=== PATIENT | female | born 1960 | race Caucasian/White ===

== ENCOUNTER 2017-07-17 16:26 | Inpatient (IN) | payer MEDICAID ==
[~2017-07-17] VITALS: Ht 147.3 cm; Wt 62.7 kg
[2017-07-17 17:13] LABS: microscopic required? NO
[2017-07-17 17:25] LABS: UA SPECIFIC GRAVITY <=1.005 (1.005-1.035); urine erythrocyte NEGATIVE (NEGATIVE)
[2017-07-17 17:27] LABS: CARBON DIOXIDE 26.2 mmol/L (21-32); CHLORIDE SERUM 99 mmol/L (98-107); CREATININE SERUM 0.8 mg/dL (0.6-1.0); GFR1 > 60 mL/min; GLUCOSE SERUM 369 mg/dL (74-106); POTASSIUM SERUM 3.6 mmol/L (3.5-5.1); SODIUM SERUM 132 mmol/L (136-145)
[2017-07-17 17:32] LABS: ALBUMIN 3.8 g/dL (3.4-5.0); ALKALINE PHOSPHATASE 124 U/L (46-116); ALT/SGPT 22 U/L (14-59); AST/SGOT 12 U/L (15-37); LIPASE 135 IU/L (73-393); TOTAL PROTEIN, SERUM 7.3 g/dL (6.4-8.2)
[2017-07-17 17:34] LABS: AMYLASE 20 U/L (25-115)
[2017-07-17 17:36] LABS: BASOPHIL % 0.1 % (0-2); PLATELET COUNT 208 x10^3mcL (130-400); RED CELL DISTRIBUTION WIDTH 12.1 % (11.5-14.5)
[2017-07-18] VITALS (7 sets, daily range): BP systolic 81–92; BP diastolic 49–58
[2017-07-18] MEDS ORDERED: BENAZEPRIL PO (01:57)
[2017-07-18] MEDS ORDERED: GOOD SENSE OMEP20 MG PO (01:57)
[2017-07-18] MEDS ORDERED: LANTUS SOLOS100 U/M1 SQ (01:57)
[2017-07-18 03:35] LABS: BASOPHIL % 0.2 % (0-2); PLATELET COUNT 183 x10^3mcL (130-400); RED CELL DISTRIBUTION WIDTH 12.8 % (11.5-14.5)
[2017-07-18 03:59] LABS: PHOSPHOROUS 3.9 mg/dL (2.5-4.9)
[2017-07-18 04:05] LABS: CALCIUM 8.5 mg/dL (8.5-10.1); CARBON DIOXIDE 28.1 mmol/L (21-32); CHLORIDE SERUM 105 mmol/L (98-107); CREATININE SERUM 0.7 mg/dL (0.6-1.0); GFR1 > 60 mL/min; GLUCOSE SERUM 227 mg/dL (74-106); MAGNESIUM 1.9 mg/dL (1.8-2.4); PHOSPHOROUS 3.2 mg/dL (2.5-4.9); POTASSIUM SERUM 3.3 mmol/L (3.5-5.1); SODIUM SERUM 140 mmol/L (136-145)
[2017-07-18 04:06] LABS: FREE T4 1.12 ng/dL (0.76-1.46); FREE THYROXINE INDEX 2.5 ug/dL (1.4-4.5); T4(THYROXINE) 6.6 ug/dL (4.7-13.3)
[2017-07-18 04:07] LABS: CHOLESTEROL/HDL RATIO 4.4; T3 TOTAL 0.85 ng/mL
[2017-07-18 04:22] LABS: AMPHETAMINE QUAL UR NONE DETECTED (NEG <=1000)
[2017-07-19 05:17] VITALS: BP 89/54
[2017-07-19 06:59] LABS: BASOPHIL % 0.4 % (0-2); PLATELET COUNT 178 x10^3mcL (130-400); RED CELL DISTRIBUTION WIDTH 12.9 % (11.5-14.5)
[2017-07-19 07:13] LABS: CALCIUM 8.4 mg/dL (8.5-10.1); CARBON DIOXIDE 26.4 mmol/L (21-32); CHLORIDE SERUM 111 mmol/L (98-107); CREATININE SERUM 0.6 mg/dL (0.6-1.0); GFR1 > 60 mL/min; GLUCOSE SERUM 141 mg/dL (74-106); POTASSIUM SERUM 3.9 mmol/L (3.5-5.1); SODIUM SERUM 141 mmol/L (136-145)
[2017-07-19 09:32] VITALS: BP 92/63
[2017-07-19 13:38] VITALS: BP 90/53
[2017-07-19 17:15] VITALS: BP 90/49
[2017-07-19 21:59] VITALS: BP 96/53
[2017-07-20 05:24] VITALS: BP 102/65
[2017-07-20 06:01] LABS: BASOPHIL % 0.5 % (0-2); PLATELET COUNT 182 x10^3mcL (130-400); RED CELL DISTRIBUTION WIDTH 13.3 % (11.5-14.5)
[2017-07-20 06:18] LABS: CALCIUM 8.1 mg/dL (8.5-10.1); CARBON DIOXIDE 27.4 mmol/L (21-32); CHLORIDE SERUM 111 mmol/L (98-107); CREATININE SERUM 0.7 mg/dL (0.6-1.0); GFR1 > 60 mL/min; GLUCOSE SERUM 157 mg/dL (74-106); POTASSIUM SERUM 3.7 mmol/L (3.5-5.1); SODIUM SERUM 146 mmol/L (136-145)
[2017-07-20 08:00] VITALS: BP 127/64
[2017-07-20] MEDS ORDERED: COL100 PO (11:07)
[2017-07-20] MEDS ORDERED: APAP/HYDROCODON1 T13 PO (11:07)
[2017-07-20 11:25] VITALS: BP 97/58
[2017-07-20] MEDS ORDERED: LOT5 PO (12:40)
[2017-07-20] MEDS ORDERED: ATORVASTATIN CA40 M1 PO (12:40)
[2017-07-20 13:06] VITALS: BP 97/58
[2017-07-20 13:08] VITALS: BP 97/58
== END 2017-07-20 14:48 | disposition home or self-care (01) | DRG 225 ==
LOC: ED 16:26 → MU 07-18 02:42 → DU 07-18 02:42 → MU 07-18 02:42 → DU 07-18 03:30 → MU 07-19 09:54
PROVIDERS: Emergency Medicine; Family Medicine; Surgery; ADMIT Family Medicine
PROC: 0DTJ4ZZ Resection of Appendix, Percutaneous Endoscopic Approach (ICD-10-PCS; principal; 2017-07-18 09:00)
DX: K35.80 Unspecified acute appendicitis (principal); N17.0 Acute kidney failure with tubular necrosis; D68.69 Other thrombophilia; E11.65 Type 2 diabetes mellitus with hyperglycemia; E87.1 Hypo-osmolality and hyponatremia; E87.8 Other disorders of electrolyte and fluid balance, not elsewhere classified; I10 Essential (primary) hypertension; G89.29 Other chronic pain; M54.9 Dorsalgia, unspecified; D64.9 Anemia, unspecified; E87.6 Hypokalemia; E83.51 Hypocalcemia; E78.5 Hyperlipidemia, unspecified; E66.9 Obesity, unspecified; Z79.4 Long term (current) use of insulin; Z68.28 Body mass index [BMI] 28.0-28.9, adult
CPT/HCPCS: 82962; 83880; 84439; C9113; J0295; J0330; J0690; J1815; J2250; J2270; J2405; J2543; J2704; J2710; J2765; J3010; J3480; J3490; J7030; Q0092; Q9966; Q9967

== ENCOUNTER 2017-08-25 11:28 | Emergency (ER) | payer MEDICAID ==
[~2017-08-25] VITALS: Ht 160 cm; Wt 62.2 kg
[~2017-08-25 11:28] MED LIST: APAP/HYDROCODON1 T13 PO; ATORVASTATIN CA40 M1 PO; BENAZEPRIL PO; COL100 PO; GOOD SENSE OMEP20 MG PO; LANTUS SOLOS100 U/M1 SQ; LOT5 PO
[2017-08-25 15:01] LABS: microscopic required? NO
[2017-08-25 15:16] LABS: UA SPECIFIC GRAVITY <=1.005 (1.005-1.035); urine erythrocyte NEGATIVE (NEGATIVE)
[2017-08-25 15:19] LABS: BASOPHIL % 0.6 % (0-2); PLATELET COUNT 199 x10^3mcL (130-400); RED CELL DISTRIBUTION WIDTH 12.6 % (11.5-14.5)
[2017-08-25 15:44] LABS: CALCIUM 9.4 mg/dL (8.5-10.1); CARBON DIOXIDE 31.1 mmol/L (21-32); CHLORIDE SERUM 104 mmol/L (98-107); CREATININE SERUM 0.7 mg/dL (0.6-1.0); GFR1 > 60 mL/min; GLUCOSE SERUM 209 mg/dL (74-106); POTASSIUM SERUM 3.8 mmol/L (3.5-5.1); SODIUM SERUM 141 mmol/L (136-145)
[2017-08-25 15:49] LABS: ALKALINE PHOSPHATASE 110 U/L (46-116); ALT/SGPT 20 U/L (14-59); AST/SGOT 14 U/L (15-37); BILIRUBIN TOTAL 0.37 mg/dL (0.20-1.00); LIPASE 212 IU/L (73-393); TOTAL PROTEIN, SERUM 7.5 g/dL (6.4-8.2)
[2017-08-25 15:58] VITALS: BP 104/74
== END 2017-08-25 16:30 | disposition home or self-care (01) ==
LOC: ED 11:28
PROVIDERS: Emergency Medicine
DX: K29.70 Gastritis, unspecified, without bleeding (principal); I10 Essential (primary) hypertension; E11.9 Type 2 diabetes mellitus without complications; G89.29 Other chronic pain; Z90.710 Acquired absence of both cervix and uterus; Z90.49 Acquired absence of other specified parts of digestive tract
CPT/HCPCS: J1885; Q0162

== ENCOUNTER 2018-01-01 11:22 | Emergency (ER) | payer MEDICAID ==
[~2018-01-01] VITALS: Ht 157.5 cm; Wt 62.1 kg
[2018-01-01 11:28] VITALS: Ht 157.5 cm; Wt 62.1 kg
[2018-01-01 14:03] VITALS: BP 99/66
== END 2018-01-01 14:03 | disposition home or self-care (01) ==
LOC: ED 11:22
DX: L25.9 Unspecified contact dermatitis, unspecified cause (principal); R10.2 Pelvic and perineal pain; N95.2 Postmenopausal atrophic vaginitis; I10 Essential (primary) hypertension; E11.9 Type 2 diabetes mellitus without complications
CPT/HCPCS: 87491; 87591

== ENCOUNTER 2018-02-02 22:26 | Emergency (ER) | payer MEDICAID ==
[~2018-02-02] VITALS: Ht 152.4 cm; Wt 72.6 kg
[2018-02-02 22:35] VITALS: Ht 152.4 cm; Wt 72.6 kg
[2018-02-03 01:05] VITALS: BP 123/88
== END 2018-02-03 01:05 | disposition home or self-care (01) ==
LOC: ED 22:26
DX: S16.1XXA Strain of muscle, fascia and tendon at neck level, initial encounter (principal); R07.89 Other chest pain; M79.1 Myalgia; I10 Essential (primary) hypertension; E11.9 Type 2 diabetes mellitus without complications; V23.5XXA Motorcycle passenger injured in collision with car, pick-up truck or van in traffic accident, initial encounter; Y93.89 Activity, other specified; Y99.8 Other external cause status; Y92.89 Other specified places as the place of occurrence of the external cause
CPT/HCPCS: J1885

== ENCOUNTER 2018-02-11 12:33 | Emergency (ER) | payer MEDICAID ==
[~2018-02-11] VITALS: Ht 154.9 cm; Wt 60.8 kg
[2018-02-11 12:41] VITALS: Ht 154.9 cm; Wt 60.8 kg
[2018-02-11 14:27] LABS: CARBON DIOXIDE 25.1 mmol/L (21-32); CHLORIDE SERUM 97 mmol/L (98-107); CREATININE SERUM 0.8 mg/dL (0.6-1.0); GFR1 > 60 mL/min; GLUCOSE SERUM 415 mg/dL (74-106); POTASSIUM SERUM 3.7 mmol/L (3.5-5.1); SODIUM SERUM 132 mmol/L (136-145)
[2018-02-11 16:55] VITALS: BP 107/67
== END 2018-02-11 16:55 | disposition home or self-care (01) ==
LOC: ED 12:33
PROVIDERS: Emergency Medicine
DX: S30.92XA Unspecified superficial injury of abdominal wall, initial encounter (principal); S20.302A Unspecified superficial injuries of left front wall of thorax, initial encounter; S20.301A Unspecified superficial injuries of right front wall of thorax, initial encounter; I10 Essential (primary) hypertension; E11.9 Type 2 diabetes mellitus without complications; V89.2XXA Person injured in unspecified motor-vehicle accident, traffic, initial encounter; Y93.89 Activity, other specified; Y99.8 Other external cause status; Y92.89 Other specified places as the place of occurrence of the external cause
CPT/HCPCS: J1885; Q9967

== ENCOUNTER 2019-02-05 22:03 | Emergency (ER) | payer MEDICAID ==
[~2019-02-05] VITALS: Ht 152.4 cm; Wt 64.0 kg
[2019-02-05 22:14] VITALS: Ht 152.4 cm; Wt 64.0 kg
[2019-02-05 23:27] LABS: BASOPHIL % 0.5 % (0-2); PLATELET COUNT 197 x10^3mcL (130-400); RED CELL DISTRIBUTION WIDTH 12.7 % (11.5-14.5)
[2019-02-05 23:33] LABS: ALBUMIN 3.7 g/dL (3.4-5.0); ALKALINE PHOSPHATASE 168 U/L (46-116); ALT/SGPT 21 U/L (14-59); AST/SGOT 14 U/L (15-37); BILIRUBIN TOTAL 0.3 mg/dL (0.20-1.00); CALCIUM 8.5 mg/dL (8.5-10.1); CARBON DIOXIDE 25.7 mmol/L (21-32); CHLORIDE SERUM 100 mmol/L (98-107); GFR1 > 60 mL/min; LIPASE 224 IU/L (73-393); POTASSIUM SERUM 3.7 mmol/L (3.5-5.1); SODIUM SERUM 134 mmol/L (136-145); TOTAL PROTEIN, SERUM 6.8 g/dL (6.4-8.2)
[2019-02-05 23:36] LABS: GLUCOSE SERUM 455 mg/dL (74-106)
[2019-02-06 02:10] VITALS: BP 102/63
== END 2019-02-06 02:02 | disposition home or self-care (01) ==
LOC: ED 22:03
PROVIDERS: Emergency Medicine
DX: E11.65 Type 2 diabetes mellitus with hyperglycemia (principal); I10 Essential (primary) hypertension; R10.9 Unspecified abdominal pain
CPT/HCPCS: 82962; J1815; J1885; J7030

== ENCOUNTER 2019-07-24 19:03 | Inpatient (IN) | payer OTHER ==
[~2019-07-24] VITALS: Ht 152.4 cm; Wt 68.6 kg
--- NOTE | 2019-07-24 19:11 | NUR ---
EKG IN PROGRESS
--- NOTE | 2019-07-24 19:26 | NUR ---
PATIENT SEEN WITH COMPLAINT OF HEADACHE, NAUSEA, LEFT CHEST PAIN AND LEFT ARM PAIN.
[2019-07-24 19:47] LABS: BASOPHIL % 0.6 % (0-2); PLATELET COUNT 225 x10^3mcL (130-400); RED CELL DISTRIBUTION WIDTH 12.8 % (11.5-14.5)
[2019-07-24 19:53] LABS: CALCIUM 8.4 mg/dL (8.5-10.1); CARBON DIOXIDE 25.9 mmol/L (21-32); CHLORIDE SERUM 104 mmol/L (98-107); CREATININE SERUM 0.7 mg/dL (0.6-1.0); GFR1 > 60 mL/min; GLUCOSE SERUM 228 mg/dL (74-106); POTASSIUM SERUM 3.9 mmol/L (3.5-5.1); SODIUM SERUM 141 mmol/L (136-145)
[2019-07-24 19:57] LABS: ALBUMIN 3.8 g/dL (3.4-5.0); ALKALINE PHOSPHATASE 93 U/L (46-116); ALT/SGPT 18 U/L (14-59); AST/SGOT 10 U/L (15-37); BILIRUBIN TOTAL 0.3 mg/dL (0.20-1.00); TOTAL PROTEIN, SERUM 7.2 g/dL (6.4-8.2)
--- NOTE | 2019-07-24 20:31 | NUR ---
PATIENT AMBULATED TO THE BATHROOM. MEDICATED WITH TORADOL IVP
--- NOTE | 2019-07-24 22:20 | NUR ---
PATIENT SITTING UP IN BED, EXPRESS SHE STILL HAS PAIN
--- NOTE | 2019-07-24 22:38 | NUR ---
PATIENT MEDICATED WITH ZOFRAN AND MORPHINE FOR HEADACHE PAIN . LEFT CHEST PAIN AND LEFT ARM PAIN.
[2019-07-24 23:27] LABS: MAGNESIUM 2.1 mg/dL (1.8-2.4)
[2019-07-24 23:30] LABS: CHOLESTEROL/HDL RATIO 4.9
--- NOTE | 2019-07-24 23:39 | NUR ---
PATIENT IS PAIN FREE POST THE MORPHINE. PATIENT IS ADMITTED . REPORT GIVEN. UNABL TO DO MED RECON, PATIENT CANNOT RECALL MEDICATIONS
--- NOTE | 2019-07-25 00:20 | NUR ---
RECEIVED PT FROM ED [facility]IA [facility], CAME IN DUE TO CHEST PAIN. AAOX4. C/O 9/10 HEADACHE AND DIZZINESS. ABLE TO FOLLOW COMMANDS. NO SOB NOTED, LUNG SOUNDS CTA. C/O 7/10 MID CHEST PAIN RADIATING TO THE LEFT ARM DESCRIBED SHARP AND PRESSURE. SR ON THE MONITOR. DENIES NUMBNESS/TINGLING SENSATION ON THE EXTREMITIES. C/O NAUSEA. DENIES ABDOMINAL PAIN. BOWEL SOUNDS ACTIVE. ABDOMEN IS SOFT. VOIDS. IV SITE ON THE LEFT HAND GAUGE 22 IS PATENT AND INTACT. SIDE RAILS UPX2. CALL LIGHT ON REACH. WALKER AT BEDSIDE. ENDORSED TO PRIMARY NURSE CRISS FOR CONTINUITY OF CARE
[2019-07-25 00:32] VITALS: BP 97/76
[2019-07-25 00:38] VITALS: Ht 152.4 cm; Wt 68.6 kg
--- NOTE | 2019-07-25 00:42 | NUR ---
RECEIVED PT FROM JIGAR MENDOZA. PT IN NO ACUTE DISTRESS. ORIENTED TO ROOM. BED IN LOWEST POSITION. CALL LIGHT WITHIN REACH. WILL CONTINUE TO MONITOR.
--- NOTE | 2019-07-25 03:30 | NUR ---
PT RESTING IN BED AWAKE WITHI DAUGHTER AT BEDSIDE. IN NO ACUTE DISTRESS. CALL LIGHT WITHIN REACH. BED IN LOWEST POSITION. WILL CONTINUE TO MONITOR.
[2019-07-25 06:00] VITALS: BP 97/63
--- NOTE | 2019-07-25 07:08 | NUR ---
RECEIVED PT FROM [facility] NURSE. PT IN BED SLEEPING, AROUSABLE, RESP E/U ON RA. NO SIGNS OF ACUTE DISTRESS NOTED. ON TELE 3 SHOWING NSR, HR: 60. SALINE LOCKED TO L HAND W/ NO ERYTHEMA OR EDEMA. BED IN LOWEST POSITION AND CALL LIGHT WITHIN REACH. WILL CONTINUE TO MONITOR.
[2019-07-25 07:21] LABS: BASOPHIL % 0.6 % (0-2); PLATELET COUNT 213 x10^3mcL (130-400); RED CELL DISTRIBUTION WIDTH 12.4 % (11.5-14.5)
[2019-07-25 07:30] LABS: CALCIUM 8.1 mg/dL (8.5-10.1); CARBON DIOXIDE 25.2 mmol/L (21-32); CHLORIDE SERUM 105 mmol/L (98-107); CREATININE SERUM 0.7 mg/dL (0.6-1.0); GFR1 > 60 mL/min; GLUCOSE SERUM 73 mg/dL (74-106); POTASSIUM SERUM 3.5 mmol/L (3.5-5.1); SODIUM SERUM 142 mmol/L (136-145)
[2019-07-25 09:15] VITALS: BP 105/63
[2019-07-25 13:24] VITALS: BP 106/69
[2019-07-25 16:09] LABS: microscopic required? NO
[2019-07-25 16:40] LABS: UA SPECIFIC GRAVITY <=1.005 (1.005-1.035); urine erythrocyte NEGATIVE (NEGATIVE)
[2019-07-25 16:51] LABS: AMPHETAMINE QUAL UR NONE DETECTED (See below)
[2019-07-25 16:58] VITALS: BP 102/59
--- NOTE | 2019-07-25 18:35 | NUR ---
PT RESTING SITTING UPRIGHT IN BED, AOX4, RESP E/U ON RA. DENIES HEADACHE, CHEST PAIN OR SOB AT THIS TIME. NO ACUTE DISTRESS NOTED. SALINE LOCKED TO L HAND W/ NO ERYTHEMA OR EDEMA. BED IN LOWEST POSITION AND CALL LIGHT WITHIN REACH. FAMILY MEMBER AT BEDSIDE. WILL ENDORSE TO ONCOMING NURSE.
--- NOTE | 2019-07-25 19:10 | NUR ---
RECEIVED A CALL FROM DR MEYER REQUESTING RESULTS FOR PT STRESS TEST. INFORMED FR MEYER RESULTS ARE NOT IN YET. PER DR MEYER WILL CALL BACK.
--- NOTE | 2019-07-25 19:30 | NUR ---
RECEIVED PT FROM DAY SHIFT RN. AAOX4 DENIES MARQUEZ/DIZZINESS. TELE #3. PT DENIES CHEST PAIN REPORTS CHEST DISCOMFORT BUT STATES SHE IS OKAY AND DENIES PAIN MEDS AT THIS TIME. BREATHING EVEN AND UNLABORED ON RA, NO SOB NOTED. GENERALIZED WEAKNESS NOTED. IV LH PATENT, SL. FAMILY AT BEDSIDE. CALL BUTTON WITHIN REACH. SAFETY PRECAUTIONS IN PLACE. WILL CONTINUE TO MONITOR.
[2019-07-25 20:21] VITALS: BP 119/64
--- NOTE | 2019-07-25 21:35 | NUR ---
PT REPORTED HAVING GENERALIZED PAIN. REQUESTING PAIN MEDICATION. NORCO GIVEN PER EMAR. CALL BUTTON WITHIN REACH. SAFETY PRECAUTIONS IN PLACE. WILL CONTINUE TO MONITOR.
--- NOTE | 2019-07-25 22:40 | NUR ---
DR REZA INFORMED ABOUT RESULT OF LEXISCAN DONE TODAY. MD WITH COME AND SEE PATIENT IN AM AND WILL UPDATE ABOUT PLANS. WILL RELAY TO ASSIGNED NURSE.
--- NOTE | 2019-07-26 | NUR ---
PT RESTING. BREATHING EVEN AND UNLABORED ON RA NO SOB NOTED. CALL BUTTON WITHIN REACH. SAFETY PRECAUTIONS IN PLACE. WILL CONTINUE TO MONITOR.
--- NOTE | 2019-07-26 04:00 | NUR ---
ROUNDS MADE. PT RESTING. NO SIGNS OF DISTRESS. CALL BUTTON WITHIN REACH. SAFETY PRECAUTIONS IN PLACE. WILL MONITOR.
--- NOTE | 2019-07-26 05:28 | NUR ---
PT SLEPT MOST OF THE NIGHT WITH NO SIGNS OF DISTRESS. BREATHING EVEN AND UNLABORED ON RA. NO SOB NOTED. IV PATENT, SL. PT AMBULATORY WTIH WALKER. BRP. PT DENIES ANY CHEST PAIN OR DISCOMFORT. NO SIGNS OF ACUTE DISTRESS NOTED. PT MEDICATED PER EMAR. CALL BUTTON WITHIN REACH. SAFETY PRECAUTIONS IN PLACE. WILL CONTINUE TO MONITOR AND ENDORSE CARE TO DAY SHIFT RN.
[2019-07-26 05:49] VITALS: BP 93/64
--- NOTE | 2019-07-26 07:12 | NUR ---
PT RESTING NO SIGNS OF DISTRESS. ENDORSED CARE TO DAY SHIFT RN, ALL QUESTIONS ADDRESSED.
[2019-07-26 09:13] VITALS: BP 89/46
--- NOTE | 2019-07-26 10:00 | NUR ---
PATIENT ALERT AND ORIENTED TIMES FOUR. PATIENT WITH CLEAR BREATH SOUNDS AND DENIES NAUSEA AT THIS TIME. REQUESTED NORCO FOR PAIN AND GAVE ALONG WITH HER OTHER MEDICATIONS ORDERED. PATIENT AHS PULSES PALPABLE AND STRONG AND NO EDEMA NOTED TO THE EXTREMITIES. LAST BLOOD SUGAR THIS AM AT 110 AND NO COVERAGE INDIATED. PATIENT AHS BEEN WITH HISTOYR OF HTN, C SECTION, HYSTERECTOMY AND CAD. S/P STRESS TEST ON THE AND PATIENT JEAN-CLAUDE BEEN WITH EF OF 71%. PATENT A HS A INFARCT ISCHEMIA AND MIL HYDOKINEISS OF THE BASILAR [facility]PT[facility],. DULCE HAS BEEN SEEN BY DR MEYER AND HAS BEEN WITH IV TO HEPLOCK AT THIST YUE SHE NEEDS MINIMAL ASSIST AND TOLERATED DIET AND FLUIDS WELL. SHE WALKS WITH A WALKER AT HOME.
--- NOTE | 2019-07-26 10:14 | NUR ---
PATIENT SEEN BY DR PELAYO AND PLAN 0F CARE DISCUSSED. THE NORCO GIVEN EARLIER WAS EFFECTIVE IN RELIEVING PAIN.
--- NOTE | 2019-07-26 12:52 | NUR ---
ECHOCARDIOGRAM PENDING-HAVING LUNCH
[2019-07-26 13:24] VITALS: BP 104/62
[2019-07-26 14:37] VITALS: BP 104/62
--- NOTE | 2019-07-26 14:59 | NUR ---
PATIENT HAS ORDER FOR DISCHARGE TO FOLLOW UP WITH OUTPATIENT ANGIO PER CHARGE NURSE. PATIENT HAS REQUESTED PAIN MEDICATION AND WILL GIVE ORDERED.
== END 2019-07-26 17:03 | disposition home or self-care (01) | DRG 311 ==
LOC: ED 19:03 → DU 22:52 → MU 07-26 16:15
PROVIDERS: Emergency Medicine; ADMIT Internal Medicine
DX: I24.9 Acute ischemic heart disease, unspecified (principal); I25.119 Atherosclerotic heart disease of native coronary artery with unspecified angina pectoris; I11.9 Hypertensive heart disease without heart failure; R51 Headache; R09.1 Pleurisy; E11.9 Type 2 diabetes mellitus without complications; E78.5 Hyperlipidemia, unspecified; Z68.29 Body mass index [BMI] 29.0-29.9, adult; Z79.4 Long term (current) use of insulin; Z79.82 Long term (current) use of aspirin
CPT/HCPCS: 82962; A9500; G0378; J1885; J2270; J2405; J2785; Q0092